=== PATIENT | female | born 1940 | race Caucasian/White ===

== ENCOUNTER → 2017-10-20 | Outpatient (CLI) | payer BC, MEDICARE ==
[~2017-10-20] MED LIST: AMOX-355 PO; ATRV10T PO; CETIRIZINE 10 MG PO; ENAL1TAB16 PO; FLC150T PO; MTR500T PO
--- NOTE | 2017-10-20 10:49 | Diagnostic Imaging Report ---
INDICATION: Screening. COMPARISON: 10/24/2015, 09/07/2014, and 08/14/2013. TECHNIQUE: Screening digital mammography was performed bilaterally with a Computer Aided Detection (CAD) system. FINDINGS: There are scattered fibroglandular densities bilaterally. There are a few benign type calcifications. There is no new dominant mass, spiculated lesion, or suspicious calcification identified. The skin, nipples, and axillae are unremarkable. IMPRESSION: Benign findings. ACR BI-RADS Category 2: Benign findings. Result letter will be mailed to the patient. Note: At least 10% of breast cancer is not imaged by mammography. Dictated by: Dictated on workstation # [id number]
== END ==
LOC: RAD 08:59
PROVIDERS: ATTEND Internal Medicine
DX: Z12.31 Encounter for screening mammogram for malignant neoplasm of breast (principal)
CPT/HCPCS: 77067

== ENCOUNTER → 2018-12-05 | Outpatient (CLI) | payer BC ==
--- NOTE | 2018-12-05 10:23 | Diagnostic Imaging Report ---
INDICATION: COUGH,CHEST COMPRESSIONS COMPARISON: 01/02/2015 FINDINGS: Frontal and lateral views of the chest demonstrate normal heart size and pulmonary vascularity. The lungs are clear. There are no signs of infiltrate, pleural effusions or pneumothoraces. The visualized osseous structures show no acute abnormalities. Large hiatal hernia is noted. IMPRESSION: 1. No acute process. No signs of infiltrates, effusions or pneumothoraces. Dictated by: Dictated on workstation # [id number]
== END ==
LOC: RAD 09:38
PROVIDERS: ATTEND Physician Assistant
DX: R05 Cough (principal); R09.89 Other specified symptoms and signs involving the circulatory and respiratory systems
CPT/HCPCS: 71046

== ENCOUNTER → 2019-02-11 | Outpatient (CLI) | payer BC ==
--- NOTE | 2019-02-11 15:53 | Diagnostic Imaging Report ---
PROCEDURE: CT abdomen and pelvis without contrast. TECHNIQUE: Multiple contiguous axial images were obtained through the abdomen and pelvis without the use of intravenous contrast. Auto Exposure Controls were utilized during the CT exam to meet ALARA standards for radiation dose reduction. INDICATION: Right-sided abdominal pain with nausea and swelling since . COMPARISON: None. DISCUSSION: Antecedent granulomatous disease is noted, benign. Normal heart size. No pleural or pericardial fluid. Large hiatal hernia containing over half the stomach. The gallbladder is surgically absent. The liver, pancreas, spleen, and adrenal glands are unremarkable. Hernia within the right upper quadrant anteriorly contains the hepatic flexure. There is no obvious obstruction in this region though there is some surrounding inflammatory changes suggesting possible early vascular compromise. Tiny ventral hernia containing fat with a portion of the wall of the transverse colon. No abnormal small bowel loops are identified. Urinary bladder is unremarkable. The uterus is surgically absent. The aorta is normal in caliber. No renal stone or hydronephrosis. No ascites or pathologically enlarged lymph nodes identified. Advanced degenerative disease is noted within the lumbar spine. Fat-containing bilateral inguinal hernias. IMPRESSION: 1. Hernia within the right upper quadrant body wall contains the hepatic flexure with early signs of inflammation. No high-grade obstruction. Recommend surgical consultation. Dictated by: Dictated on workstation # [id number]
== END ==
LOC: RAD 15:08
PROVIDERS: ATTEND Nurse Practitioner Family
DX: K43.9 Ventral hernia without obstruction or gangrene (principal); E78.00 Pure hypercholesterolemia, unspecified; I10 Essential (primary) hypertension; N39.0 Urinary tract infection, site not specified; Z90.49 Acquired absence of other specified parts of digestive tract
CPT/HCPCS: 74176

== ENCOUNTER → 2019-05-03 | Outpatient (CLI) | payer BC ==
[~2019-05-03] MED LIST changes: +RT-ALBUTEROL SULF 2.5 MG/3 ML PRE-MIX VIAL INH ONE; +RT-ALBUTEROL SULF 2.5 MG/3 ML PRE-MIX VIAL ONE
== END ==
LOC: RT 12:54
PROVIDERS: ATTEND Nurse Practitioner Family
DX: J40 Bronchitis, not specified as acute or chronic (principal); J32.9 Chronic sinusitis, unspecified; J30.2 Other seasonal allergic rhinitis
CPT/HCPCS: 94060; 94726; 94729

== ENCOUNTER 2019-07-05 15:52 | Emergency (ER) | payer BC ==
[~2019-07-05] VITALS: Ht 154.9 cm; Wt 66.0 kg
[~2019-07-05 15:52] MED LIST changes: -RT-ALBUTEROL SULF 2.5 MG/3 ML PRE-MIX VIAL INH ONE; -RT-ALBUTEROL SULF 2.5 MG/3 ML PRE-MIX VIAL ONE
[2019-07-05] MEDS ORDERED: MECLIZINE 25 MG (ANTIVERT) TAB PO ONE (16:30)
[2019-07-05] MEDS ORDERED: NS IV 500 ML 500 ML IV SCH (16:30)
--- NOTE | 2019-07-05 16:35 | ED General ---
General Chief Complaint: Dizziness/Syncope Stated Complaint: DIZZINESS AND POSS DEHYDRATION Nursing Triage Note: TO TRIAGE WITH COMPLAINTS OF DIZZINESS STARTING AT 1100 TODAY. HAS BEEN OUT IN THE HEAT FOR 3 DAYS AND THINKS SHE MIGHT BE DEHYDRATED. ALSO COMPLAINS OF A HEADACHE AND RIGHT SIDED EARACHE. Nursing Sepsis Screen: No Definite Risk Source of Information: Patient Exam Limitations: No Limitations History of Present Illness Date Seen by Provider: Jul 05, 2019 Time Seen by Provider: 16:34 Initial Comments To ER with reports of dizziness beginning this morning. States that this may be dehydration/heat related because she's been out in the heat each of the past 3 days at various grandchildren Events. No diarrhea, she has had some intermittent right ear aches. History of several ear infections on the right side over the past year. Dizziness is only present with movement, not at rest. Timing/Duration: 1-2 Days Severity: Moderate Associated Systoms: Denies Symptoms Allergies and Home Medications Allergies Coded Allergies: No Known Drug Allergies (Unverified , 11/02/11) Home Medications Atorvastatin Calcium 10 Mg Tablet, 1 EACH PO HS, (Reported) Enalapril/Hydrochlorothiazide 1 Tab Tablet, 1 TAB PO DAILY, (Reported) [Citirizine 10 Mg] , 10 MG PO DAILY, (Reported) Patient Home Medication List Home Medication List Reviewed: Yes Review of Systems Review of Systems Constitutional: see HPI, dizziness EENTM: see HPI Respiratory: no symptoms reported Cardiovascular: no symptoms reported Genitourinary: no symptoms reported Musculoskeletal: no symptoms reported Skin: no symptoms reported Past Dxgadja-Zstoli-Fcifnz Hx Patient Social History Alcohol Use: Denies Use Recreational Drug Use: No Smoking Status: Never a Smoker Recent Foreign Travel: No Contact w/Someone Who Travel: No Recent Infectious Disease Expo: No Recent Hopitalizations: Yes Immunizations Up To Date Date of Pneumonia Vaccine: Jul 18, 2012 Date of Influenza Vaccine: Aug 13, 2011 Past Medical History Surgeries: Yes (HERNIA) Bowel Surgery Respiratory: No Cardiac: Yes Hypertension Neurological: No Reproductive Disorders: No Gastrointestinal: No Musculoskeletal: Yes Endocrine: No Cancer: Yes Colon Psychosocial: No Integumentary: No Blood Disorders: No Physical Exam Vital Signs Vital Signs - First Documented 07/05/19 16:07 Temp 36.7 Pulse 66 Resp 16 B/P (MAP) 147/77 (100) Pulse Ox 96 O2 Delivery Room Air Capillary Refill : Less Than 3 Seconds Height, Weight, BMI Height: '" Weight: lbs. oz. kg; 27.00 BMI Method: General Appearance: No Apparent Distress, WD/WN Eyes: Bilateral Eye Normal Inspection, Bilateral Eye PERRL, Bilateral Eye EOMI HEENT: PERRL/EOMI, TMs Normal, Normal ENT Inspection, Other (minimal horizontal nystagmus) Neck: Full Range of Motion, Normal Inspection Respiratory: No Accessory Muscle Use, No Respiratory Distress Cardiovascular: Regular Rate, Rhythm, Normal Peripheral Pulses Gastrointestinal: Normal Bowel Sounds, Non Tender, Soft Extremity: Normal Capillary Refill, Normal Inspection Neurologic/Psychiatric: Alert, Oriented x3 Skin: Normal Color, Warm/Dry Progress/Results/Core Measures Suspected Sepsis Recent Fever Within 48 Hours: No Infection Criteria Present: Suspected New Infection New/Unexplained Altered Menta: No Sepsis Screen: No Definite Risk SIRS Temperature: Pulse: 66 Respiratory Rate: 16 Laboratory Tests 07/05/19 16:34: White Blood Count 5.6 Blood Pressure 147 /77 Mean: 100 Laboratory Tests 07/05/19 16:34: Creatinine 0.84, Platelet Count 208, Total Bilirubin 0.4 Results/Orders Lab Results Laboratory Tests Test 07/05/19 16:34 Range/Units White Blood Count 5.6 4.3-11.0 10^3/uL Red Blood Count 4.77 4.35-5.85 10^6/uL Hemoglobin 14.4 11.5-16.0 G/DL Hematocrit 42 35-52 % Mean Corpuscular Volume 87 80-99 FL Mean Corpuscular Hemoglobin 30 25-34 PG Mean Corpuscular Hemoglobin Concent 35 32-36 G/DL Red Cell Distribution Width 13.1 10.0-14.5 % Platelet Count 208 130-400 10^3/uL Mean Platelet Volume 9.1 7.4-10.4 FL Neutrophils (%) (Auto) 77 H 42-75 % Lymphocytes (%) (Auto) 16 12-44 % Monocytes (%) (Auto) 7 0-12 % Eosinophils (%) (Auto) 0 0-10 % Basophils (%) (Auto) 1 0-10 % Neutrophils # (Auto) 4.3 1.8-7.8 X 10^3 Lymphocytes # (Auto) 0.9 L 1.0-4.0 X 10^3 Monocytes # (Auto) 0.4 0.0-1.0 X 10^3 Eosinophils # (Auto) 0.0 0.0-0.3 10^3/uL Basophils # (Auto) 0.0 0.0-0.1 10^3/uL Sodium Level 132 L 135-145 MMOL/L Potassium Level 4.0 3.6-5.0 MMOL/L Chloride Level 102 98-107 MMOL/L Carbon Dioxide Level 23 21-32 MMOL/L Anion Gap 7 5-14 MMOL/L Blood Urea Nitrogen 14 7-18 MG/DL Creatinine 0.84 0.60-1.30 MG/DL Estimat Glomerular Filtration Rate > 60 BUN/Creatinine Ratio 17 Glucose Level 113 H 70-105 MG/DL Calcium Level 10.4 H 8.5-10.1 MG/DL Corrected Calcium 10.4 H 8.5-10.1 MG/DL Total Bilirubin 0.4 0.1-1.0 MG/DL Aspartate Amino Transf (AST/SGOT) 28 5-34 U/L Alanine Aminotransferase (ALT/SGPT) 19 0-55 U/L Alkaline Phosphatase 86 40-136 U/L Total Protein 7.5 6.4-8.2 GM/DL Albumin 4.0 3.2-4.5 GM/DL My Orders Orders - LARRY MURRAY APRN Cbc With Automated Diff (07/05/19 16:28) Comprehensive Metabolic Panel (07/05/19 16:28) Ua Culture If Indicated (07/05/19 16:28) Ed Iv/Invasive Line Start (07/05/19 16:28) Ct Angio Head/Neck (07/05/19 16:28) Meclizine Tablet (Antivert Tablet) (07/05/19 16:30) Ns Iv 500 Ml (Sodium Chloride 0.9%) (07/05/19 16:30) Medications Given in ED Current Medications Medications Dose Ordered Sig/Julian Route Start Time Stop Time Status Last Admin Dose Admin Meclizine HCl 25 mg ONCE ONCE PO 07/05/19 16:30 07/05/19 16:31 DC 07/05/19 16:41 25 MG Vital Signs/I&O 07/05/19 16:07 Temp 36.7 Pulse 66 Resp 16 B/P (MAP) 147/77 (100) Pulse Ox 96 O2 Delivery Room Air Capillary Refill : Less Than 3 Seconds Blood Pressure Mean: 100 Departure Impression Primary Impression: Vertigo Disposition: 01 HOME, SELF-CARE Condition: Stable Departure-Patient Inst. Decision time for Depature: 17:43 Referrals: YEIMI PICHARDO MD (PCP/Family) Primary Care Physician Patient Instructions: Vertigo (a Type of Dizziness) (DC) Add. Discharge Instructions: 1. Change positions slowly 2.dizziness medication as directed 3. Follow-up with your doctor next week for recheck. Return to ER for any worsening. All discharge instructions reviewed with patient and/or family. Voiced understanding. Scripts Meclizine HCl (Meclizine HCl) 25 Mg Tablet 25 MG PO TID PRN for DIZZINESS, #14 TAB Prov: LARRY MURRAY HOSE TUBING BACKER 07/05/19 LARRY MURRAY APRN Jul 05, 2019 16:35
[2019-07-05 16:42] LABS: BASOPHILS % (AUTO) 1 % (0-10); EOSINOPHILS % (AUTO) 0 % (0-10); HEMATOCRIT 42 % (35-52); HEMOGLOBIN 14.4 G/DL (11.5-16.0); LYMPHOCYTES # (AUTO) 0.9 X 10^3 (1.0-4.0); LYMPHOCYTES % (AUTO) 16 % (12-44); MEAN CORPUSCULAR HEMOGLOBIN 30 PG (25-34); MEAN CORPUSCULAR HGB CONC 35 G/DL (32-36); MEAN CORPUSCULAR VOLUME 87 FL (80-99); MEAN PLATELET VOLUME 9.1 FL (7.4-10.4); MONOCYTES # (AUTO) 0.4 X 10^3 (0.0-1.0); MONOCYTES % (AUTO) 7 % (0-12); NEUTROPHILS # (AUTO) 4.3 X 10^3 (1.8-7.8); NEUTROPHILS % (AUTO) 77 % (42-75); PLATELET COUNT 208 10^3/uL (130-400); RED CELL DISTRIBUTION WIDTH 13.1 % (10.0-14.5); WHITE BLOOD COUNT 5.6 10^3/uL (4.3-11.0)
[2019-07-05 17:02] LABS: ALANINE AMINOTRANSFERASE 19 U/L (0-55); ALKALINE PHOSPHATASE 86 U/L (40-136); BILIRUBIN,TOTAL 0.4 MG/DL (0.1-1.0); BUN/CREATININE RATIO 17; CALCIUM 10.4 MG/DL (8.5-10.1); CARBON DIOXIDE 23 MMOL/L (21-32); CHLORIDE 102 MMOL/L (98-107); CREATININE SERUM 0.84 MG/DL (0.60-1.30); GFR ESTIMATED > 60; GLUCOSE 113 MG/DL (70-105); SODIUM 132 MMOL/L (135-145); TOTAL PROTEIN 7.5 GM/DL (6.4-8.2)
[2019-07-05] MEDS ORDERED: MECL-106 PO (17:45)
[2019-07-05] MEDS ORDERED: HOLD METFORMIN - RECEIVED CONTRAST 20 ML VIAL IV SCH (18:00)
[2019-07-05] MEDS ORDERED: NS 100 ML (IVPB) BAG IV ONE (18:00)
[2019-07-05] MEDS ORDERED: IOHEXOL 350 MG/ML 100 ML (OMNIPAQUE 350) VIAL IV ONE (18:00)
--- NOTE | 2019-07-05 18:21 | Diagnostic Imaging Report ---
CLINICAL INDICATION: Patient with dizziness, headaches, nausea and right ear problems. Exams: 1: Head CT with and without IV contrast. Auto Exposure Controls were utilized during the CT exam to meet ALARA standards for radiation dose reduction. 2: CT angiogram of the head and neck performed with 100 cc of Omnipaque 350 IV contrast. Sagittal and coronal MIP reformations were created for better visualization of vascular anatomy. Comparison: None. Findings: There is no evidence of acute cerebral infarct, intracranial hemorrhage, or gross mass effect. There is no abnormal IV contrast enhancement. The brain parenchymal volume appears appropriate for patient's age. There are small focal and patchy areas of low-attenuation white matter changes involving both cerebral hemispheres, likely representing chronic small vessel ischemic disease. There is normal wise-white matter distinction. There is no significant midline shift or herniation. There is no evidence of hydrocephalus. The basal cisterns are unremarkable. The skull, extracranial soft tissue, and orbits are unremarkable. The paranasal sinuses are unremarkable. Temporal bones show no significant abnormality. CT ANGIOGRAM: Of note, the aortic arch and proximal portions of the left common carotid artery and brachiocephalic artery are not completely imaged. There is dense contrast within the left subclavian vein and innominate vein which causes streak artifact obscuring portion of the aortic arch and proximal great vessels. The bilateral subclavian arteries, and visualized portion of the brachiocephalic artery are patent. The visualized portion of the left CCA, right CCA, bilateral cervical ICA, and bilateral ECA are patent. There is mild tortuosity of the mid left cervical ICA. The petrous and cavernous portions of the bilateral ICA are patent. There is dental streak artifact which obscures portions of the neck vascular structures at the C2-C3 level. Otherwise, the bilateral cervical vertebral arteries are patent. Bilateral PICA are patent. The intradural bilateral vertebral arteries, basilar artery, superior cerebellar artery, and bilateral director of casino are patent. The bilateral A1 ACAs, anterior communicating artery, A2 ACAs and distal branches are patent. The bilateral MCAs and their distal branches are patent. The dural venous sinuses are patent. The neck soft tissue structures show no significant abnormalities. Visualized upper lung barajas are clear. There is cervical spine degenerative disease with vertebral body spurs and facet arthropathy. IMPRESSION: 1: Unremarkable CT scan of the brain for age with mild chronic small vessel ischemic disease. 2: Unremarkable CT angiogram of the [place] and neck as visualized. There is no significant stenosis, vascular malformation, dissection, or aneurysm. Dictated by: Dictated on workstation # [id number]
[2019-07-05] MEDS ORDERED: RX-MECLIZINE HCL (ANTIVERT) 25 MG TAB #4 PPK PO ONE (18:42)
[2019-07-05 18:44] LABS: BILIRUBIN,URINE NEGATIVE (NEGATIVE); CLARITY,URINE CLEAR; COLOR,URINE YELLOW; GLUCOSE, URINE (UA) NEGATIVE (NEGATIVE); KETONES,URINE NEGATIVE (NEGATIVE); LEUKOCYTE ESTERASE ,URINE 1+ (NEGATIVE); NITRITE,URINE NEGATIVE (NEGATIVE); PH,URINE 6.5 (5-9); PROTEIN,URINE NEGATIVE (NEGATIVE); UROBILINOGEN,URINE NORMAL (NORMAL)
[2019-07-05] MEDS ORDERED: RX-MECLIZINE HCL (ANTIVERT) 25 MG TAB #4 PPK PO STA (18:48)
[2019-07-05 18:56] LABS: BACTERIA,URINE FEW /HPF
[2019-07-05 18:58] VITALS: BP 147/77
== END 2019-07-05 18:56 | disposition home or self-care (01) ==
LOC: EDUNIT# 15:52 → ER 15:53
DX: R42 Dizziness and giddiness (principal); I10 Essential (primary) hypertension; Z85.038 Personal history of other malignant neoplasm of large intestine
CPT/HCPCS: 36415; 70496; 70498; 80053; 81000; 85025; 87088; 96360

== ENCOUNTER → 2019-10-23 | Outpatient (CLI) | payer BC ==
[~2019-10-23] MED LIST changes: +MECL-106 PO
--- NOTE | 2019-10-23 11:00 | Diagnostic Imaging Report ---
INDICATION: Routine screening. Comparison is made with prior mammogram 10/21/2018 and 10/20/2017. 2-D and 3-D bilateral screening mammography was performed with CAD. Scattered fibroglandular densities are identified bilaterally. There are benign calcifications. No dominant mass or malignant appearing microcalcifications are seen. Axillae are unremarkable. IMPRESSION: BI-RADS Category 2 No mammographic features suspicious for malignancy are identified. ACR BI-RADS Category 2: Benign findings. Result letter will be mailed to the patient. Note: At least 10% of breast cancer is not imaged by mammography. Dictated by: Dictated on workstation # [id number]
== END ==
LOC: RAD 08:42
PROVIDERS: ATTEND Internal Medicine
DX: Z12.31 Encounter for screening mammogram for malignant neoplasm of breast (principal)
CPT/HCPCS: 77067

== ENCOUNTER 2021-01-14 11:09 | Outpatient (RCR) | payer BC ==
[2021-01-13 11:15] VITALS: BP 131/71
[2021-01-13 12:30] VITALS: BP 124/65
[2021-01-13 12:55] VITALS: BP 134/78
[2021-01-13 14:55] VITALS: BP 126/69
[~2021-01-14] VITALS: Ht 154.9 cm; Wt 69.5 kg
[~2021-01-14 11:09] MED LIST changes: -MECL-106 PO; +MECL-149 PO; +NS IV 500 ML 500 ML IV ONE
== END 2021-04-13 | disposition home or self-care (01) ==
LOC: SDC 11:09
PROVIDERS: ATTEND Nurse Practitioner Family
DX: D50.9 Iron deficiency anemia, unspecified (principal)
CPT/HCPCS: 36430; 86850; 86900; 86901; 86920; P9016; 82274

== ENCOUNTER → 2021-12-25 | Outpatient (CLI) | payer MEDICARE, OTHER ==
[~2021-12-25] MED LIST changes: -NS IV 500 ML 500 ML IV ONE
== END ==
LOC: CARD 14:30
PROVIDERS: ATTEND Nurse Practitioner Family
DX: R00.0 Tachycardia, unspecified (principal)
CPT/HCPCS: 93005

== ENCOUNTER → 2022-11-18 | Outpatient (CLI) | payer MEDICARE, OTHER ==
--- NOTE | 2022-11-18 14:48 | Diagnostic Imaging Report ---
Indication: Routine screening. Comparison is made with prior mammogram from 10/23/2019 and 10/21/2018. 2-D and 3-D bilateral screening mammography was performed with CAD. CAD is utilized. The current study was also evaluated with a Computer Aided Detection (CAD) system. Scattered fibroglandular densities are identified bilaterally. The parenchymal pattern is stable. No mass or malignant-appearing microcalcifications are seen. Axillae are unremarkable. IMPRESSION: BI-RADS Category 1 No mammographic features suspicious for malignancy are identified. ACR BI-RADS Category 1: Negative. Result letter will be mailed to the patient. Note: At least 10% of breast cancer is not imaged by mammography. Dictated by: Dictated on workstation # [id number]
== END ==
LOC: RAD 09:41
PROVIDERS: ATTEND Nurse Practitioner Family
DX: Z12.31 Encounter for screening mammogram for malignant neoplasm of breast (principal)
CPT/HCPCS: 77063; 77067

== ENCOUNTER 2022-12-23 05:33 | Outpatient (CLI) | payer MEDICARE, OTHER ==
[~2022-12-23] VITALS: Ht 154.9 cm; Wt 69.4 kg
[2022-12-23] MEDS ORDERED: ATOR10TA66 PO (15:33)
[2022-12-23] MEDS ORDERED: FEXO180T84 PO (15:33)
[2022-12-23] MEDS ORDERED: ENAL1TAB9 PO (15:33)
== END 2022-12-23 15:37 | disposition home or self-care (01) ==
LOC: PREOP 05:33
PROVIDERS: ATTEND Surgery
DX: Z01.818 Encounter for other preprocedural examination (principal)

== ENCOUNTER 2023-01-05 07:24 | Day surgery (SDC) | payer MEDICARE, OTHER ==
[~2023-01-05] VITALS: Ht 154.9 cm; Wt 69.4 kg
[~2023-01-05 07:24] MED LIST changes: +ATOR10TA66 PO; +ENAL1TAB9 PO; +FEXO180T84 PO
[2023-01-05] MEDS ORDERED: LACTATED RINGERS 1,000 ML IV STA (07:25)
[2023-01-05 07:47] VITALS: BP 116/75
[2023-01-05] MEDS ORDERED: PROPOFOL INJECTION 50 ML IV ONE (08:19)
--- NOTE | 2023-01-05 08:39 | Discharge Inst-Simple/Standard ---
Discharge Inst-Standard Patient Instructions/Follow Up Plan of Care/Instructions/FU: 2 weeks Ya Activity as Tolerated: Yes Discharge Diet: No Restrictions EULALIA BAXTER DO Jan 05, 2023 08:39
[2023-01-05 08:40] VITALS: BP 89/50
--- NOTE | 2023-01-05 08:41 | Progress Note-Post Operative ---
Post-Operative Progess Note Surgeon (s)/Customer Service Rep (s) Surgeon EULALIA BAXTER DO Customer Service Rep: na Pre-Operative Diagnosis H/O polyps Post-Operative Diagnosis Normal Colonoscopy Procedure & Operative Findings Date of Procedure 01/05/23 Procedure Performed/Findings Colonoscopy Anesthesia Type per THEATER SET PRODUCTION DESIGNER Estimated Blood Loss Estimated blood loss (mL): none Specimens/Packing Specimens Removed none EULALIA BAXTER DO Jan 05, 2023 08:41
[2023-01-05 08:45] VITALS: BP 106/67
[2023-01-05 09:10] VITALS: BP 124/78
[2023-01-05 09:11] VITALS: BP 124/78
--- NOTE | 2023-01-05 12:42 | Anesthesia-General Post-Op ---
MAC Patient Condition Mental Status/LOC: Same as Preop Cardiovascular: Satisfactory Nausea/Vomiting: Absent Respiratory: Satisfactory Pain: Controlled Complications: Absent Post Op Complications Complications None Follow Up Care/Instructions Patient Instructions None needed. Anesthesiology Discharge Order Discharge Order Patient is doing well, no complaints, stable vital signs, no apparent adverse anesthesia problems. No complications reported per nursing. TANIYA BURNS CRNA Jan 05, 2023 12:42
--- NOTE | 2023-01-05 14:28 | OPERATIVE REPORT ---
DATE OF SERVICE: 01/05/2023 POSTOPERATIVE DIAGNOSES: History of colon polyps. POSTOPERATIVE DIAGNOSIS: Normal colon. PROCEDURE: Colonoscopy. SURGEON: Eulalia Pandya DO ANESTHESIA: Per SIDING INSTALLER. ESTIMATED BLOOD LOSS: None. COMPLICATIONS: None. INDICATIONS: The patient is an 82-year-old female with history of polyps. She understands risks and benefits of procedure and wishes to proceed. Consent was signed in chart. DESCRIPTION OF PROCEDURE: The patient was taken to endoscopy suite, placed in left lateral recumbent position. Timeout was performed. Digital rectal exam was performed. No palpable polyps, masses or ulcerations. Some internal hemorrhoids. Scope was inserted in the rectum, advanced all the way to the cecum with minimal difficulty. Prep was adequate. The terminal ileum was intubated and had normal appearance. Scope was slowly retracted back. Prep was adequate. No polyps, masses or ulcerations in the cecum, ascending, transverse, descending and sigmoid colon. Once in the rectum, scope was retroflexed, noting no other pathology. Scope was returned to its normal position, slowly withdrawn until completely removed. The patient tolerated the procedure well without complications, taken to recovery room in stable condition. RECOMMENDATIONS: The patient does not need any further colonoscopies unless warranted by symptomatology. Any issues be seen at that time. Job ID: [id number] DocumentID: [id number] Dictated Date: 01/05/2023 08:40:38 Building Services Technician Date: 01/05/2023 14:26:00 Dictated By: EULALIA PANDYA DO
== END 2023-01-05 09:24 | disposition home or self-care (01) ==
LOC: ENDO 07:24
PROVIDERS: ATTEND Surgery
DX: Z12.11 Encounter for screening for malignant neoplasm of colon (principal); K64.8 Other hemorrhoids; Z86.010 Personal history of colon polyps

== ENCOUNTER → 2023-06-08 | Outpatient (CLI) | payer MEDICARE, OTHER ==
[2023-06-08 09:11] LABS: ABSOLUTE RETIC # 100 10e9/uL (24-90); BASOPHILS % (AUTO) 1 % (0-10); EOSINOPHILS # (AUTO) 0.1 10^3/uL (0.0-0.3); EOSINOPHILS % (AUTO) 2 % (0-10); HEMATOCRIT 40 % (35-52); HEMOGLOBIN 13.6 g/dL (11.5-16.0); LYMPHOCYTES # (AUTO) 1.2 10^3/uL (1.0-4.0); LYMPHOCYTES % (AUTO) 25 % (12-44); MEAN CORPUSCULAR HEMOGLOBIN 32 pg (25-34); MEAN CORPUSCULAR HGB CONC 34 g/dL (32-36); MEAN CORPUSCULAR VOLUME 93 fL (80-99); MEAN PLATELET VOLUME 8.9 fL (9.0-12.2); MONOCYTES # (AUTO) 0.5 10^3/uL (0.0-1.0); MONOCYTES % (AUTO) 10 % (0-12); NEUTROPHILS # (AUTO) 2.8 10^3/uL (1.8-7.8); NEUTROPHILS % (AUTO) 62 % (42-75); PLATELET COUNT 212 10^3/uL (130-400); RETICULOCYTE % 2.34 % (0.50-2.40); WHITE BLOOD COUNT 4.6 10^3/uL (4.3-11.0)
[2023-06-08 09:30] LABS: BAND NEUTROPHILS 0 %; BASOPHILS % (MANUAL) 2 %; EOSINOPHILS % (MANUAL) 1 %; LYMPHOCYTES % (MANUAL) 26 %; MONOCYTES % (MANUAL) 15 %; NEUTROPHILS % (MANUAL) 56 %; RBC MORPH NORMAL
== END ==
LOC: LAB 08:49
PROVIDERS: ATTEND Physician Assistant
DX: D50.9 Iron deficiency anemia, unspecified (principal); I10 Essential (primary) hypertension; E83.52 Hypercalcemia
CPT/HCPCS: 36415; 85007; 85027; 85045; 85055